=== PATIENT | male | born 1950 | race Hispanic/Latino ===

== ENCOUNTER 2018-05-24 21:17 | Observation (INO) | payer MEDICARE, OTHER ==
--- NOTE | 2018-05-24 21:41 | ED PDOC ---
Arrival/HPI - General Chief Complaint: Trauma Time Seen by Provider: 05/24/18 21:25 Historian: Patient - History of Present Illness Narrative History of Present Illness (Text): 05/24/18 21:38 A 68 year old male, whose past medical history includes HTN, CVA, depression, and DM, presents to emergency department from [facility] following a fall while attempting to get up from bed, according to the patient. He thinks he lost his balance,fell down hitting the back of his head.Slight headache earlier.The patient denies LOC. The patient denies fevers, chills, dizziness, sore throat, cough, chest pain, shortness of breath, dyspnea on exertion, abdominal pain, nausea, vomiting, diarrhea, neck/back pain, urinary/ bowel changes or any other complaint. PMD: Dr. Roque Time/Duration: Prior to Arrival Symptom Onset: Sudden Symptom Course: Unchanged Activities at Onset: Rest, Light Context: Home Past Medical History - Provider Review Nursing Documentation Reviewed: Yes - Infectious Disease Hx of Infectious Diseases: None - Cardiac Hx Hypertension: Yes - Neurological HX Cerebrovascular Accident: Yes (L sided weakness) - Endocrine/Metabolic Hx Diabetes Mellitus Type 2: Yes - Musculoskeletal/Rheumatological Other/Comment: L sided weakness - Psychiatric Hx Psychophysiologic Disorder: Yes Hx Depression: Yes Hx Substance Use: No Family/Social History - Physician Review Nursing Documentation Reviewed: Yes Family/Social History: No Known Family HX Smoking Status: Never Smoked Hx Alcohol Use: No Hx Substance Use: No Allergies/Home Meds Allergies/Adverse Reactions: Allergies No Known Allergies Allergy (Verified 05/24/18 21:23) Home Medications: Home Meds Medication Instructions Recorded Confirmed Aspirin/Dipyridamole [Aggrenox 25 1 tab PO BID 05/24/18 05/24/18 mg-200 mg Capsule] Bisacodyl [Dulcolax] 1 supp RC DAILY PRN 05/24/18 05/24/18 Ergocalciferol [Drisdol 50,000 1 cap PO Q7D 05/24/18 05/24/18 Intl Units Cap] Folic Acid [Folic Acid] 1 tab PO DAILY 05/24/18 05/24/18 Furosemide [Lasix] 1 tab PO DAILY 05/24/18 05/24/18 Lactulose [Enulose] 20 g PO Q6H PRN 05/24/18 05/24/18 Latanoprost 0.005% Opht [Xalatan 1 drop BOTHEYES DAILY 05/24/18 05/24/18 Opht] Loperamide HCl [Imodium A-D] 1 tab PO Q6H PRN 05/24/18 05/24/18 Meclizine [Meclizine*] 1 tab PO Q8H PRN 05/24/18 05/24/18 Melatonin [Melatonin] 1 tab PO HS 05/24/18 05/24/18 Pregabalin [Lyrica] 1 cap PO Q12H 05/24/18 05/24/18 Sertraline [Zoloft] 1 tab PO DAILY 05/24/18 05/24/18 Simvastatin [Simvastatin] 1 tab PO HS 05/24/18 05/24/18 Thiamine [Vitamin B1 Tab] 100 mg PO DAILY 05/24/18 05/24/18 amLODIPine [Norvasc] 1 tab PO DAILY 05/24/18 05/24/18 Review of Systems - Physician Review All systems were reviewed & negative as marked: Yes - Review of Systems Constitutional: absent: Fevers ENT: absent: Sore Throat Respiratory: absent: SOB, Cough Cardiovascular: absent: Chest Pain, CROW Gastrointestinal: absent: Abdominal Pain, Stool Changes, Diarrhea, Nausea, Vomiting Genitourinary Male: absent: Urinary Output Changes Musculoskeletal: absent: Back Pain, Neck Pain Skin: Laceration (Laceration to head) Neurological: absent: Headache, Dizziness Physical Exam Vital Signs Reviewed: Yes Vital Signs Temp Pulse Resp BP Pulse Ox 05/25/18 00:35 97.8 F 71 18 134/60 95 05/24/18 21:44 98.7 F 76 18 142/79 95 Temperature: Afebrile Blood Pressure: Normal Pulse: Regular Respiratory Rate: Normal Appearance: Positive for: Well-Appearing, Non-Toxic, Comfortable Pain Distress: None Mental Status: Positive for: Alert and Oriented X 3 - Systems Exam Head: Present: Normocephalic, Laceration (4 cm laceration to the posterior occipital scalp.) Pupils: Present: PERRL Extroacular Muscles: Present: EOMI Conjunctiva: Present: Normal Mouth: Present: Moist Mucous Membranes Neck: Present: Normal Range of Motion, Other (No dorsal-spinal tenderness.) Respiratory/Chest: Present: Clear to Auscultation, Good Air Exchange. No: Respiratory Distress, Accessory Muscle Use Cardiovascular: Present: Regular Rate and Rhythm, Normal S1, S2. No: Murmurs Abdomen: No: Tenderness, Distention, Peritoneal Signs Back: Present: Normal Inspection Upper Extremity: Present: Normal Inspection. No: Cyanosis, Edema Lower Extremity: Present: Normal Inspection. No: Edema Neurological: Present: GCS=15, CN II-XII Intact, Speech Normal, Other (Left upper arm paresis with some contractures (Old). No new focal deficits.) Skin: Present: Warm, Dry, Normal Color. No: Rashes Psychiatric: Present: Alert, Oriented x 3, Normal Insight, Normal Concentration Medical Decision Making ED Course and Treatment: 05/24/18 21:44 Impression: A 68 year old male presents to the emergency department for further evaluation of a head laceration s/p a fall. Plan: -- Head CT -- Laceration Repair -- Reassess and disposition Prior Visits: Notes and results from previous visits were reviewed. Progress Notes: 05/24/18 22:23 PROCEDURE: LACERATION REPAIR Performed by the emergency provider Location: posterior occipital scalp Length: 4 cm Description: clean wound edges,no foreign bodies Distal CMS: Normal. No deficits. Neurovascularly intact. Anesthesia: Lidocaine 1% Preparation: The wound was cleaned with NS. The area was prepped and draped in the usual sterile fashion. Exploration: The wound was explored and no foreign bodies were found. Procedure: The wound was closed with a staple gun. There was good approximation. In total, 10 jean claude were used. Post-Procedure: Good closure and hemostasis. The patient tolerated the procedure well and there were no complications. CSM remains intact. Post procedure dressing applied. EXAM: CT Head Without Intravenous Contrast Dictated and Authenticated by: Babak Kelly MD 05/24/2018 10:40 PM Eastern Time ([place] & [place]) IMPRESSION: Acute subdural bleed associated with the posterior falx extending into the right tentorial membrane. No midline shift. Soft tissue swelling indicating posttraumatic contusion. Age-related atrophy and chronic white matter ischemic changes, with no evidence of an additional acute intracranial abnormality. 05/24/18 22:58: Case discussed in detail with Dr. Weiner (Neurosurgeon). He contradicts the [facility] radiology report and feels that it shows a normal, thickened falx and no surgical intervention is needed. Requests patient be admitted for observation. 05/24/18 23:00: Case discussed in detail with [facility] Radiologist, Babak Kelly MD, who feels that this is a small bleed. 05/24/18 23:44 EKG: Ordered, reviewed, and independently interpreted the EKG. Rate : 70 BPM Rhythm : NSR Interpretation : 1st degree AV block. LBBB. 05/25/18 01:07: Chest X-ray read an interpreted by me shows no acute processes. 05/25/18 01:14: Case discussed in detail with Dr. Roque who request patient be placed on his service for observation further consultation. Requests Dr. Leblanc, , and Dr. Austin on consult. - Lab Interpretations Lab Results: 05/24/18 22:53 05/24/18 22:53 Lab Results 05/24/18 22:53: WBC 8.7, RBC 4.74, Hgb 15.1, Hct 42.2, MCV 89.0, MCH 31.9, MCHC 35.8, RDW 12.9, Plt Count 215, MPV 10.2 05/24/18 22:53: Sodium 137, Potassium 3.5 L, Chloride 100, Carbon Dioxide 27, Anion Gap 14, BUN 22 H, Creatinine 1.1, Est GFR ( Amer) > 60, Est GFR ( Non-Af Amer) > 60, Random Glucose 158 H, Calcium 9.5, Total Bilirubin 0.6, AST 39, ALT 28, Alkaline Phosphatase 100, Lactate Dehydrogenase 482, Total Creatine Kinase 73, Troponin I 0.05, Total Protein 7.5, Albumin 4.2, Globulin 3.4, Albumin/Globulin Ratio 1.2 05/24/18 22:53: PT 11.0, INR 0.97, APTT 30.8 I have reviewed the lab results: Yes - RAD Interpretation Radiology Orders: 05/24/18 21:34 HEAD W/O CONTRAST [CT] Stat 05/24/18 22:49 CHEST PORTABLE [RAD] Stat - Scribe Statement The provider has reviewed the documentation as recorded by the Scribe Vee Siu Provider Scribe Attestation: All medical record entries made by the Scribe were at my direction and personally dictated by me. I have reviewed the chart and agree that the record accurately reflects my personal performance of the history, physical exam, medical decision making, and the department course for this patient. I have also personally directed, reviewed, and agree with the discharge instructions and disposition. Disposition/Present on Arrival - Present on Arrival Any Indicators Present on Arrival: No History of DVT/PE: No History of Uncontrolled Diabetes: No Urinary Catheter: No History of Decub. Ulcer: No History Surgical Site Infection Following: None - Disposition Have Diagnosis and Disposition been Completed?: Yes Diagnosis: Near syncope, Scalp laceration Disposition: HOSPITALIZED Disposition Time: 01:27 Patient Plan: Observation Condition: STABLE Forms: [employer] ([place])
[2018-05-24] MEDS ORDERED: Lidocaine 1% 5ml Abboject ONE (22:22)
[2018-05-24 23:05] LABS: HEMOGLOBIN 15.1 g/dL (14.0-18.0); MEAN CORPUSCULAR HEMOGLOBIN 31.9 pg (25.0-35.0); MEAN CORPUSCULAR HGB CONC 35.8 g/dl (31.0-37.0); MEAN PLATELET VOLUME 10.2 fl (7.0-11.0); RBC 4.74 10^6/uL (3.5-6.1); RED CELL DISTRIBUTION WIDTH 12.9 % (11.5-14.5); WHITE BLOOD COUNT 8.7 10^3/ul (4.5-11.0)
[2018-05-24 23:10] LABS: ALB/GLOB RATIO 1.2 (1.1-1.8); ALBUMIN 4.2 g/dL (3.0-4.8); CALCIUM 9.5 mg/dL (8.4-10.5); GFR NON-AFRICAN AMERICAN > 60; INR 0.97; PARTIAL THROMBOPLASTIN TIME 30.8 Seconds (25.1-36.5)
[2018-05-24 23:26] LABS: TROPONIN I 0.05 ng/mL
[2018-05-25 00:57] LABS: ALT/SGPT 28 U/L (7-56); AST/SGOT 39 U/L (17-59); BLOOD UREA NITROGEN 22 mg/dL (7-21)
[2018-05-25 03:48] VITALS: BMI 309253.6
[2018-05-25] MEDS ORDERED: Potassium Chloride 20 mEq ER Tab PO ONE (06:16)
[2018-05-25] MEDS ORDERED: Sodium Chloride 0.45% 1,000 ML IV SCH (06:30)
--- NOTE | 2018-05-25 08:03 | RAD ---
Date of service: 05/24/2018 HISTORY: medical clearance COMPARISON: No prior. FINDINGS: LUNGS: No active pulmonary disease. PLEURA: No significant pleural effusion identified, no pneumothorax apparent. CARDIOVASCULAR: Moderate aortic tortuosity. The heart is normal in size. OSSEOUS STRUCTURES: No significant abnormalities. VISUALIZED UPPER ABDOMEN: Normal. OTHER FINDINGS: None. IMPRESSION: No active disease.
[2018-05-25 08:06] LABS: ALB/GLOB RATIO 1.3 (1.1-1.8); ALBUMIN 3.8 g/dL (3.0-4.8); ALT/SGPT 33 U/L (7-56); AST/SGOT 31 U/L (17-59); BLOOD UREA NITROGEN 19 mg/dL (7-21); CALCIUM 9.4 mg/dL (8.4-10.5); GFR NON-AFRICAN AMERICAN > 60
[2018-05-25] MEDS: Insulin Reg-MEDIUM-Coverage SC SCH ×4 (08:25→22:31)
--- NOTE | 2018-05-25 08:27 | CT ---
Date of service: 05/24/2018 PROCEDURE: CT HEAD WITHOUT CONTRAST. HISTORY: injury COMPARISON: None available. TECHNIQUE: Axial computed tomography images were obtained through the head/brain without intravenous contrast. Radiation dose: Total exam DLP = 1097.63 mGy-cm. This CT exam was performed using one or more of the following dose reduction techniques: Automated exposure control, adjustment of the mA and/or kV according to patient size, and/or use of iterative reconstruction technique. FINDINGS: HEMORRHAGE: There is acute subdural hematoma along the right aspect of the posterior falx extending to the right tentorial leaflet . The maximum thickness of the 7 millimeter. There is also small subdural hematoma along the right aspect of the mid and upper falx with maximal thickness of 2.4 millimeter. BRAIN: Focal encephalomalacia at the right occipital lobe is noted suggestive of old infarct. Moderate atrophy and moderate to extensive white matter changes are noted. Possible old lacunar infarcts at the basal ganglia and right thalamus. VENTRICLES: Mild ex vacuo dilatation of the occipital horn of the right lateral ventricle is noted. CALVARIUM: Unremarkable. PARANASAL SINUSES: Unremarkable as visualized. No significant inflammatory changes. MASTOID AIR CELLS: Unremarkable as visualized. No inflammatory changes. OTHER FINDINGS: None. IMPRESSION: Subdural hematoma along the posterior right aspect of the falx extending along the right tentorial leaflet with maximal thickness of 7 millimeter noted. Focal encephalomalacia at the right occipital lobe. Volume loss and extensive white matter changes suggestive but nonspecific for chronic microvascular ischemic disease. Preliminary report was submitted by virtual Radiology.
--- NOTE | 2018-05-25 14:45 | CP.PCM.CON ---
History of Present Illness - History of Present Illness History of Present Illness: called re ? SD hemorrhage along R falx probable thickening along posterior falx next to old infact doubt SDH of no clinical significance suggested DC to ER staff Past Patient History - Infectious Disease Hx of Infectious Diseases: None - Past Social History Smoking Status: Never Smoked - CARDIAC Hx Hypertension: Yes - NEUROLOGICAL HX Cerebrovascular Accident: Yes - ENDOCRINE/METABOLIC Hx Diabetes Mellitus Type 2: Yes - MUSCULOSKELETAL/RHEUMATOLOGICAL Hx Falls: Yes - PSYCHIATRIC Hx Depression: Yes Hx Substance Use: No Meds Allergies/Adverse Reactions: Allergies Allergy/AdvReac Type Severity Reaction Status Date / Time No Known Allergies Allergy Verified 05/24/18 21:23 - Medications Medications: Current Medications Amlodipine Besylate (Norvasc) 10 mg PO DAILY [facility] Last Admin: 05/25/18 10:10 Dose: 10 mg Atorvastatin Calcium (Lipitor) 10 mg PO HS [facility] Folic Acid (Folic Acid) 1 mg PO DAILY [facility] Last Admin: 05/25/18 10:10 Dose: 1 mg Furosemide (Lasix) 20 mg PO DAILY [facility] Last Admin: 05/25/18 10:10 Dose: 20 mg Sodium Chloride (Sodium Chloride 0.45%) 1,000 mls @ 30 mls/hr IV .Q24H [facility] Last Admin: 05/25/18 10:11 Dose: 30 mls/hr Insulin Human Regular (Humulin R Med) 0 units SC ACHS [facility] PRN Reason: Protocol Last Admin: 05/25/18 12:06 Dose: Not Given Lactulose (Enulose) 20 gm PO Q6H PRN PRN Reason: Constipation Latanoprost (Xalatan Opht) 0 ml OU HS [facility] Meclizine HCl (Antivert) 25 mg PO Q8H PRN PRN Reason: Dizziness Sertraline HCl (Zoloft) 25 mg PO DAILY [facility] Last Admin: 05/25/18 10:10 Dose: 25 mg Thiamine HCl (Vitamin B1 Tab) 100 mg PO DAILY [facility] Last Admin: 05/25/18 10:10 Dose: 100 mg Results - Vital Signs Recent Vital Signs: Last Vital Signs Temp 99.1 F 05/25/18 12:00 Pulse 70 05/25/18 12:00 Resp 18 05/25/18 12:00 BP 151/73 H 05/25/18 12:00 Pulse Ox 96 05/25/18 02:30 - Labs Result Diagrams: 05/24/18 22:53 05/25/18 07:30 Labs: Laboratory Results - last 24 hr 05/25/18 07:30 Sodium 141 Potassium 4.0 Chloride 101 Carbon Dioxide 29 Anion Gap 16 BUN 19 Creatinine 1.1 Est GFR ( Amer) > 60 Est GFR (Non-Af Amer) > 60 Random Glucose 156 H Calcium 9.4 Total Bilirubin 0.5 AST 31 ALT 33 Alkaline Phosphatase 78 Total Protein 6.8 Albumin 3.8 Globulin 3.0 Albumin/Globulin Ratio 1.3
--- NOTE | 2018-05-25 15:53 | CARD ---
APPROVED REPORT Date of service: 05/25/2018 EXAM: Two-dimensional and M-mode echocardiogram with Doppler and color Doppler. INDICATION Syncope 2D DIMENSIONS Left Atrium (2D)4.2 (1.6-4.0cm)IVSd1.5 (0.7-1.1cm) LVDd6.4 (3.9-5.9cm)PWd1.7 (0.7-1.1cm) LVDs4.4 (2.5-4.0cm)FS (%) 32.1 % LVEF (%)59.1 (>50%) Aortic Valve AoV Peak Gdzcghjj948.0cm/Jasper Peak GR.19mmHgAI P 1/2 [id number] Mitral Valve MV E Rmmnljig61.8cm/sMV A Enzzpvzm63.0cm/sE/A ratio0.6 TDI E/Lateral E'0.0E/Medial E'0.0 Tricuspid Valve TR Peak Bmnhvjbq569lz/sRAP CBCPWVPN78byCiTY Peak Gr.13mmHg [id number] LEFT VENTRICLE The left ventricle is normal size. There is mild to moderate concentric left ventricular hypertrophy. The left ventricular ejection fraction is within the normal range. Septal hypokinesis Transmitral Doppler flow pattern is Grade I-abnormal relaxation pattern. RIGHT VENTRICLE The right ventricle is normal size. There is normal right ventricular wall thickness. The right ventricular systolic function is normal. ATRIA The left atrium is borderline dilated. The right atrium size is normal. AORTIC VALVE The aortic valve is not well visualized. There is moderate aortic regurgitation. There is no aortic valvular stenosis. MITRAL VALVE The mitral valve is normal in structure. There is no mitral valve regurgitation noted. There is no mitral valve stenosis. TRICUSPID VALVE The tricuspid valve is normal in structure. There is no tricuspid valve regurgitation noted. GREAT VESSELS The aortic root is normal in size. PERICARDIAL EFFUSION There is a trace loculated anterior pericardial effusion. <Conclusion> The left ventricle is normal size. There is mild to moderate concentric left ventricular hypertrophy. The left ventricular ejection fraction is within the normal range. Septal hypokinesis Transmitral Doppler flow pattern is Grade I-abnormal relaxation pattern. There is moderate aortic regurgitation.
--- NOTE | 2018-05-25 17:40 | CARD ---
APPROVED REPORT Date of service: 05/24/2018 EKG Measurement Heart [id number] NM 230P1 [id number] <Conclusion> Sinus rhythm with 1st degree AV block Left axis deviation Left bundle branch block Abnormal ECG
--- NOTE | 2018-05-25 19:28 | CON ---
DATE: 05/25/2018 NEUROLOGY CONSULT CHIEF COMPLAINT: Status post fall and subarachnoid hemorrhage. HISTORY OF PRESENT ILLNESS: This is a 68-year-old man with history of hypertension, right occipital infarct, type 2 diabetes mellitus, diabetic peripheral neuropathy, who is status post fall when getting into bed, hit the back of his head, which resulted in a small subdural hematoma in the posterior right falx extending to the right tentorium with 7 mm in size. Neurosurgery evaluated, which has no surgical significance at this time. He is following commands. He and some left residual weakness from previous CVA. He does have evidence of diabetic peripheral neuropathy on examination. PAST MEDICAL HISTORY: As above. SOCIAL HISTORY: No illicit drug use, smoking, or EtOH abuse. ALLERGIES: NO KNOWN DRUG ALLERGIES. MEDICATIONS: Reviewed by nurse per reconciliation sheet. FAMILY HISTORY: Noncontributory. LABORATORY DATA: Sodium is 141, potassium is 4, chloride 101, carbon dioxide 29. BUN of 19, creatinine 1.1. Random glucose of 156. PHYSICAL EXAMINATION GENERAL: The patient is sitting up in bed, in no acute distress. HEENT: Atraumatic, normocephalic. PERRLA. Extraocular muscles intact. NECK: Supple. No JVD, no adenopathy noted. LUNGS: Clear to auscultation. No adventitious sounds. HEART: S1 and S2. Normal rate and rhythm. No murmurs, rubs, or gallops. ABDOMEN: Soft, nontender, and nondistended. Bowel sounds are present. EXTREMITIES: No clubbing. No cyanosis. Peripheral pulses 2+ felt bilaterally. NEUROLOGIC: The patient is alert and oriented to person, place, month, and year. Speech is fluent without any errors. Cranial nerves II through XII intact. Motor exam: Moves all extremities equally, spastic mild left-sided weakness from prior CVA and contracted over the left hand. Sensory exam: Decreased light touch and pinprick up to the calves bilaterally. Decreased vibration of the toes. DTRs are 2+ throughout, 1 at both knees and absent at the ankles. Toes are downgoing bilaterally. Coordination: [id number] intact. No dysmetria noted. IMPRESSION: A 68-year-old man with past medical history of hypertension, right occipital cerebrovascular accident with mild residual left-sided weakness, type 2 diabetes mellitus, diabetic peripheral neuropathy, had a mechanical fall and fell on the back of his head, which resulted in a small right posterior falx subdural hematoma measuring 7 mm with no surgical intervention by Neurosurgery. He does have frequent falls from possible deconditioned state as well as diabetic peripheral neuropathy indicating difficulties. At this time, we will recommend; 1. PT/OT and subacute rehab. 2. Can resume his Aggrenox in about a week for stroke prevention. 3. Monitor electrolytes and correct accordingly. 4. Get Neurosurgery clearance. Thank you for this consultation. Patrick Robin MD
--- NOTE | 2018-05-25 20:46 | CON ---
DATE: 05/25/2018 CARDIOLOGY CONSULTATION HISTORY: The patient is a 68-year-old male who presents with near syncopal episode in the long term. The patient cannot tell other than he was standing and he felt little dizzy and fell to the ground. He denies loss of consciousness. PAST MEDICAL HISTORY: Includes a history of hypertension and diabetes mellitus. He has had a CVA in the past, which has resulted in left-sided weakness. He walks with much assistance as well as with a walker. No previous cardiac history is noted. No chest pain or shortness of breath. No previous myocardial infarction. SOCIAL HISTORY: Denies smoking. REVIEW OF SYSTEMS: A 14-point review of systems is free of cardiac symptoms. PHYSICAL EXAMINATION: VITAL SIGNS: Blood pressure is 157/76, heart rate is in the 60s. NECK: Negative JVD. LUNGS: Without rales. HEART: S1, S2. EXTREMITIES: Without edema. LABORATORY DATA: EKG shows a normal sinus rhythm with left bundle branch block and first-degree heart block. Glucose 156. Troponin is 0.05. Hemoglobin is 15. IMPRESSION: 1. Status post fall. 2. Questionable syncope. 3. History of cerebrovascular accident. 4. Abnormal EKG. 5. Hypertension. 6. Diabetes mellitus. 7. Indeterminate troponin levels. Given these findings, we will obtain an echocardiogram to evaluate his LV function. We will obtain serial troponin's. Gaetano Leblanc MD
[2018-05-25] MEDS ORDERED: Latanoprost 2.5 ml Opht Soln OU SCH (22:00)
[2018-05-26 00:13] VITALS: O2SAT 95
--- NOTE | 2018-05-26 03:31 | HP ---
NOTE: I was called last night from the [facility] where he lives that he had a fall and head trauma incident and is coming to the emergency room. HISTORY OF PRESENT ILLNESS: He is a 68-year-old white man with a past medical history of CVA, hypertension, depression, diabetes and while attempting to get out of bed, he fell and hit the back of his head. He lost his balance. He tells me he did not lose consciousness but he definitely hit his head and he is here in the emergency room. It was a sudden change. He has got left-sided weakness from an old stroke. He gets depressed from time to time. FAMILY HISTORY: Unknown. SOCIAL HISTORY: No smoker. No alcohol. No drinking. ALLERGIES: NO KNOWN DRUG ALLERGIES. MEDICATIONS: He takes Aggrenox, Dulcolax, Drisdol, folic acid, Lasix, Enulose, Imodium, meclizine, melatonin, Lyrica, Zoloft, simvastatin, vitamin B1 and Norvasc. I am holding the Aggrenox because of the CAT scan and we can see what the results say. REVIEW OF SYSTEMS: No fevers. No sore throat. No vision changes. No hearing changes. The back of his head does hurt a little bit. No shortness of breath or cough. No chest pain or palpitations or dyspnea on exertion. No abdominal pain. No stool changes. No diarrhea, nausea, vomiting, constipation or problems urinating. No back pain or neck pain. At the back of his head, a little laceration where it hit. No headache or dizziness. PHYSICAL EXAMINATION: VITAL SIGNS: He has a 97.8 temperature, 71 pulse, 18 respiratory rate, 134/60 blood pressure, 95% O2 sat. GENERAL: He is well appearing, nontoxic, comfortable. Slept fairly well. Alert and oriented x3. HEENT: 3/4-cm laceration to the posterior occipital scalp area. Otherwise, normocephalic. Extraocular muscles are intact. Pupils are equal and reactive to light. Conjunctivae normal. Mucous membranes moist. NECK: Range of motion okay. No spinal tenderness. HEART: Regular rate. Normal S1, S2. LUNGS: Clear to auscultation with decreased breath sounds. No wheezes, rhonchi or rales. ABDOMEN: Soft, nontender. Positive bowel sounds. No guarding, rebound or CVA tenderness. EXTREMITIES: Reveals no edema. NEUROLOGIC: He has a little bit left-sided weakness from his old stroke. GCS is 15. Cranial nerves II-XII grossly intact. No new focal deficits. SKIN: Warm and dry. No apparent rashes or ulcers. PSYCHIATRIC: Alert and oriented x3. LYMPHATICS: Thyroid midline. No palpable appreciable lymphadenopathy that I could tell. LABORATORY DATA AND IMAGING STUDIES: So, he was brought by ambulance to the emergency room. He had a head trauma with laceration repair. He had multiple tests done. The chest x-ray and head CT are pending, and I will go over that more a little bit. He has an 8.7 white count, 15.1 hemoglobin, 42.2 hematocrit with 215 platelets. PT 11, INR is 0.97. He has 137 sodium. Potassium is 3.5, I gave him potassium BUN 22, creatinine 1.1. He is on IV fluids. GFR 60, sugar is 158. He is on insulin coverage. Calcium is 9.5, total bili is 0.6, AST is 39, ALT is 28, alk phos 100. Lactate dehydrogenase is 42. Total creatine kinase is 73. Troponin I is 0.05, total protein 7.5, albumin is 4.2. Now on the CAT scan of the head, the radiologist's reading was that there was a subdural hematoma, but the neurosurgeon read it as nothing. So, see what the neurologist, then the final reading of the head CAT scan says. He is on observation right now. He is comfortable. I held the Aggrenox. He has got IV fluids. He will be on oxygen and we will keep a close eye on observation. IMPRESSION: The patient with a fall, head trauma, near syncope, possible subdural hematoma, diabetes, hypertension, possible bleed with an old cerebrovascular accident with left-sided weakness. Sascha Roque DO MTDD
[2018-05-26 06:45] LABS: MEAN CELL VOLUME 89.4 fl (80.0-105.0); MEAN CORPUSCULAR HGB CONC 34.7 g/dl (31.0-37.0); MEAN PLATELET VOLUME 10.7 fl (7.0-11.0); RBC 4.51 10^6/uL (3.5-6.1); RED CELL DISTRIBUTION WIDTH 13.1 % (11.5-14.5); WHITE BLOOD COUNT 7.6 10^3/ul (4.5-11.0)
[2018-05-26 07:32] LABS: ALB/GLOB RATIO 1.2 (1.1-1.8); ALBUMIN 3.6 g/dL (3.0-4.8); ALT/SGPT 34 U/L (7-56); AST/SGOT 31 U/L (17-59); BLOOD UREA NITROGEN 19 mg/dL (7-21); CALCIUM 8.7 mg/dL (8.4-10.5); GFR NON-AFRICAN AMERICAN > 60
[2018-05-26 07:42] LABS: TROPONIN I 0.05 ng/mL
[2018-05-26] MEDS: Insulin Reg-MEDIUM-Coverage SC SCH ×2 (08:04→12:12)
--- NOTE | 2018-05-26 11:55 | PN ---
DATE: 05/26/2018 CARDIOLOGY FOLLOWUP SUBJECTIVE: The patient is without dizziness, without shortness of breath. PHYSICAL EXAMINATION: VITAL SIGNS: Blood pressure is 152/72, heart rate is in the 70s, normal sinus rhythm. NECK: Negative JVD. LUNGS: Without rales. HEART: Reveals S1, S2. EXTREMITIES: Without edema. LABORATORY DATA: Potassium is 3.5, glucose is 139, hemoglobin is 14. Echocardiogram reveals good LV function with septal wall motion abnormality. No aortic stenosis noted. There is [id number] aortic regurgitation. IMPRESSION: 1. Status post fall. 2. History of cerebrovascular accident. 3. Diabetes mellitus. 4. Hypertension. 5. Abnormal electrocardiogram. 6. No aortic stenosis. 7. [id number] aortic insufficiency. PLAN: Given these findings, the abnormal wall motion abnormality is likely due to his conduction abnormalities with his left bundle-branch block. There is no identifiable cardiac cause of his fall. Gaetano Leblanc MD
[2018-05-26] MEDS ORDERED: Potassium Chloride 20 mEq ER Tab PO ONE (12:11)
[2018-05-26 12:22] VITALS: BP 144/75; PULSE 73; RESP 20; TEMP 98.5
--- NOTE | 2018-05-27 09:03 | DS ---
HISTORY OF PRESENT ILLNESS: The patient came into the hospital with a fall. He has had jean claude on the top of his head. There was a question of subdural hematoma on the CAT scan that is how it was read, but the neurosurgeon felt it was not that. Neurology gave him a clean slate to leave the hospital and so did Cardiology. He is alert and back to his baseline. PHYSICAL EXAMINATION: VITAL SIGNS: He has a 98 temperature, 71 pulse, 152/72 blood pressure, 18 respiratory rate, 95% O2 sat on room air. HEENT: Head is traumatic with top of the head laceration with jean claude. Mouth is moist. NECK: Supple. HEART: Regular rate. LUNGS: Decreased breath sounds, but clear. ABDOMEN: Soft, obese, and nontender. EXTREMITIES: He had left-sided weakness from the old stroke. MEDICATIONS: He is currently on Antivert, Enulose, folic acid, insulin, Lasix, Lipitor, Norvasc, IV fluids, thiamine, Xalatan, and Zoloft. He had potassium replacement for low potassium. LABORATORY DATA: He has 138 sodium; potassium 3.5, I replaced the potassium; BUN 19; creatinine 1.1; GFR is greater than 60; sugar is 139. Calcium is 8.7. Total bilirubin is 0.7, AST is 31, ALT is 34, alk phos 73, total protein is 6.5. Troponin I is 0.05. Albumin is 3.6. INR is 0.97. White count 7.6, 14 hemoglobin, 40.3 hematocrit with 212 platelets. ASSESSMENT AND PLAN: He was seen by Neurosurgery, Cardiology, and Neurology. They all said he could be discharged from his near syncope, head trauma, possible subdural hematoma, but was not old cerebrovascular accident, and diabetes. He will be discharged and followed up at [facility] by myself. We will have the Aggrenox hold for 1 week and does not restart and replace potassium. Sascha Roque DO
== END 2018-05-26 17:27 ==
LOC: ED 21:17 → ERH 05-25 01:15 → 2RNO 05-25 02:36
PROVIDERS: ADMIT Family Medicine; ATTEND Family Medicine
DX: S06.5X0A Traumatic subdural hemorrhage without loss of consciousness, initial encounter (principal); S01.01XA Laceration without foreign body of scalp, initial encounter; E11.42 Type 2 diabetes mellitus with diabetic polyneuropathy; I10 Essential (primary) hypertension; I35.1 Nonrheumatic aortic (valve) insufficiency; I44.0 Atrioventricular block, first degree; I44.7 Left bundle-branch block, unspecified; I69.354 Hemiplegia and hemiparesis following cerebral infarction affecting left non-dominant side; R29.6 Repeated falls; W01.0XXA Fall on same level from slipping, tripping and stumbling without subsequent striking against object, initial encounter
CPT/HCPCS: 36415; 70450; 71045; 80053; 82550; 82948; 83615; 84484; 85027; 85610; 85730; 93005; 93306; 97161; 97530; 99285; G0378; G8978; G8979; J7030